=== PATIENT | female | born 1955 | race Asian ===

== ENCOUNTER 2021-12-01 06:37 | Emergency (ER) | payer OTHER ==
[~2021-12-01] VITALS: Ht 160 cm; Wt 65.8 kg
[2021-12-01] MEDS ORDERED: IBUPROFEN 600 MG TABLET ONE (07:11)
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
--- NOTE | 2021-12-01 07:16 | NUR ---
taken to radiology
[2021-12-01] MEDS ORDERED: IBUPROFEN 600 MG TABLET PO ONE (07:30)
--- NOTE | 2021-12-01 09:08 | NUR ---
[facility]
[2021-12-01 10:48] VITALS: BP 142/81
== END 2021-12-01 10:48 | disposition home or self-care (01) ==
LOC: ER 06:41
DX: S16.1XXA Strain of muscle, fascia and tendon at neck level, initial encounter (principal); V49.9XXA Car occupant (driver) (passenger) injured in unspecified traffic accident, initial encounter; Y93.89 Activity, other specified; Y92.411 Interstate highway as the place of occurrence of the external cause; Y99.8 Other external cause status
CPT/HCPCS: 71046; 72040-TC